=== PATIENT | male | born 1975 | race Hispanic/Latino ===

== ENCOUNTER 2018-07-26 07:26 | Day surgery (SDC) | payer BC ==
[2018-07-14 11:33] VITALS: BMI 22.8
[2018-07-26] MEDS ORDERED: Lactated Ringer's 1,000 ML IV ONE (08:01)
[2018-07-26] MEDS ORDERED: Bupivacaine 0.5% Inj(30mL) ONE (11:08)
[2018-07-26] MEDS ORDERED: ceFAZolin IV 1 gm in Dextrose 2 GM/100 ML BAG IVPB ONE (11:08)
[2018-07-26] MEDS ORDERED: Propofol 10 mg/ml Inj (20 ML) ONE (11:18)
[2018-07-26] MEDS ORDERED: Midazolam 2 MG/2 ML VIAL ONE (11:18)
[2018-07-26] MEDS ORDERED: Lidocaine 2% Inj (20ml) IJ ONE ×4 (11:53)
[2018-07-26] MEDS ORDERED: HEMOSTATIC MATRIX 10 ML DIS.NEEDLE TOP ONE ×2 (12:20→12:55)
[2018-07-26] MEDS ORDERED: Lactated Ringer's 1,000 ML IV SCH (13:30)
[2018-07-26 15:30] VITALS: BP 110/66; PULSE 70; RESP 18; TEMP 97.5; O2SAT 99
--- NOTE | 2018-07-27 07:24 | OP ---
PROCEDURE DATE: 07/26/2018 SURGEON: Keyur Gore M.D. ANESTHESIOLOGIST: Misty Le M.D. ANESTHESIA: Local / IV Sedation PROCEDURE: Stage one interstim placement INDICATIONS: Mr. Cordero is a 42-year-old male who presented to me with complaints of rectal pain, fecal incontinence, and overactive bladder. He has failed conservative therapy with both anticholinergics and beta-3 agonist therapy and is here today for stage I Interstim trial. I have explained to the patient that there are no guarantees that can be made with regards to the overactive bladder, the fecal incontinence, or the pelvic pain. I have explained that that is the specific reason why we are doing a test phase today. OPERATIVE DETAILS: The patient was brought to the operating room, placed in the prone position. Sedation was administered. We then prepped and draped the patient including a pre-scrub with Chlorhexidine solution followed by Chlorhexidine and alcohol combined scrub. We draped the patient in the usual sterile fashion. We then called a time-out, verifying patient name, procedure, antibiotics, and allergies. We proceeded to infiltrate local anesthetic composed of 0.5% Marcaine and 2% lidocaine without epinephrine. Then, the area of the planned pocket as well as the area of the lead placement which of fluoroscopic images to guide placement of the needle through an incision in the back which we were able to place off the right side into the S3 foramen. Stimulation on the table was performed, and the patient perceived sensation of stimulation within the rectum. I then turned my attention to the pocket, and I made a 4 cm transverse incision over the right upper outer quadrant of the gluteus shawn on the right side. The incision was carried down to the fascia of the gluteus shawn, and excellent hemostasis was achieved using electrocautery. We then tunneled the right and left leads to this incision. I placed booties on the leads and connected the extension pieces. The right side was marked with a Prolene stitch. The left side was marked with a silk stitch. These were then tunneled back towards the patient's left side, not at the skin where they were connected to the external device. All incisions were closed using absorbable suture. Dressing was placed. The patient tolerated the procedure well, had education done by the [facility] and will follow up with me for decision regarding either proceeding to step to implants or explantation of the leads. The patient will be in close contact with both myself and the [employer] rep over the next week to determine at least 50% improvement in symptomatology. Keyur Gore M.D. MTDD
--- NOTE | 2018-07-28 12:46 | RAD ---
Date of service: 07/26/2018 PROCEDURE: Intraoperative Fluoroscopy. HISTORY: INTERSTIM PLACEMENT FINDINGS: Fluoroscopic assistance was provided for stimulator placement. Please refer to the operative report from PANCHITO Christina. Total fluoroscopic time (continuous mode) utilized during the procedure 128.3 seconds.
== END 2018-07-26 15:30 | disposition home or self-care (01) ==
LOC: H.OPSURG 07:26
PROVIDERS: ATTEND Urology
DX: N32.81 Overactive bladder (principal); N39.41 Urge incontinence; K21.9 Gastro-esophageal reflux disease without esophagitis; R15.9 Full incontinence of feces
CPT/HCPCS: 64590; J0690; J1885; J2250; J2704; J2765; J3010; J7120

== ENCOUNTER → 2018-08-09 | Day surgery (SDC) | payer BC ==
[2018-07-14 11:33] VITALS: BMI 22.8
[~2018-08-09] MED LIST: Lidocaine 1% Inj (20ml) ONE; Liquid Adhesive TOP ONE; Midazolam 2 MG/2 ML VIAL ONE; Propofol 10 mg/ml 2,000 MG/200 ML VIAL ONE; Propofol 10 mg/ml Inj (20 ML) ONE; Sodium Chloride 0.9% 10 ML IV ONE; Succinylcholine 200 mg/10 ml Inj IV ONE; ceFAZolin IV 1 gm in Dextrose 1 GM/50 ML BAG IVPB ONE; ePHEDrine 50 mg/ml Inj ONE
[2018-08-09] MEDS: Lactated Ringer's 1,000 ML IV ONE ×2 (08:32→10:45)
[2018-08-09] MEDS: Bupivacaine HCl 0.5% PF (30 ml) Inj ONE (08:42)
[2018-08-09] MEDS: Lidocaine 2% Inj (20ml) IJ ONE ×2 (08:42)
[2018-08-09] MEDS: HEMOSTATIC MATRIX 10 ML DIS.NEEDLE TOP ONE (09:00)
[2018-08-09 10:01] VITALS: RESP 20
[2018-08-09 11:06] VITALS: BP 115/65; PULSE 69; TEMP 97.4; O2SAT 100
--- NOTE | 2018-08-09 20:59 | OP ---
PROCEDURE DATE: 08/09/2018 INDICATIONS FOR SURGERY: Mr. Cordero is a 42-year-old male, who is now postop 2 weeks from a stage 1 Interstim with greater than 50% reduction in his urinary urgency, fecal urgency and fecal incontinence who came in for a stage 2 Interstim implant. PREOPERATIVE DIAGNOSES: Fecal incontinence, urgency of urination, urgency of defecation. POSTOPERATIVE DIAGNOSES: Fecal incontinence, urgency of urination, urgency of defecation. PROCEDURE: Stage 2 Interstim. ESTIMATED BLOOD LOSS: Minimal. ANESTHESIA: Local with sedation. This is a clean case. OPERATIVE DETAILS: The patient was brought to the operating, place in the prone position, anesthesia was administered, we then performed a pre-scrub of the skin with chlorhexidine solution. We then prepped the skin with alcohol-based prep. We waited 3 minutes, prepped and draped the patient in usual sterile fashion and called time-out verifying the patient name, procedure, antibiotics and allergies. We then proceeded to make an incision over our previously-made pocket. The pocket was explored and the leads were identified. The pocket was irrigated copiously with sterile water. The left and right leads, which were previously marked with silk and Prolene stitches to differentiate between the 2 were identified. The silk marked the left, the Prolene marked right. Given his preoperative description of more relief on the right side with a lesser voltage, we decided to connect the right side and bury the left side. The left lead was buried. The right lead was connected through the [employer] battery pack. The screws were tightened and again the pocket was irrigated copiously. The battery pack was placed within an antibiotic-impregnated pouch, this was placed into the pocket. The pocket was then closed using 2-0 Vicryl sutures for the deep space and 4-0 Monocryl for the skin. Dermabond was applied to the skin. Steri-Strips were applied to the skin and at this point, the patient tolerated the procedure well. Impendences, voltages, and programing was performed intraoperatively using the external device. All of the tests that were run were passed and the device was programmed. The patient tolerated the procedure well, will follow up with both myself and [employer] [facility] for further program. Keyur Gore M.D. [facility] # [id number]
== END | disposition home or self-care (01) ==
LOC: H.OPSURG 06:34
PROVIDERS: ATTEND Urology
DX: N39.41 Urge incontinence (principal); R15.9 Full incontinence of feces; F32.9 Major depressive disorder, single episode, unspecified; F41.9 Anxiety disorder, unspecified
CPT/HCPCS: 64561; 64590; C1767; C1787; C2615; J0330; J0690; J1885; J2001; J2250; J2704; J3010; J7030; J7120